=== PATIENT | female | born 1995 | race Caucasian/White ===

== ENCOUNTER 2024-06-03 00:20 | Inpatient (IN) | payer OTHER ==
[~2024-06-03] VITALS: Ht 160 cm; Wt 59.0 kg
[2024-06-03] MEDS ORDERED: HOME MED LIST COMPLETE! XX SCH (03:05)
[2024-06-03] MEDS: LORazepam 0.5 MG TAB PO STA (04:01)
[2024-06-03 17:50] VITALS: BP 108/75; TEMP 97.5; O2SAT 97
[2024-06-03] MEDS ORDERED: ACETAMINOPHEN 325 MG TAB PO PRN (20:40)
[2024-06-03] MEDS ORDERED: traZODone 50 MG TAB PO PRN (20:40)
[2024-06-03] MEDS ORDERED: MOM 30ML SUSPENSION UDC PO PRN (20:40)
[2024-06-03] MEDS ORDERED: MAALOX 30 ML SUSP *UDC PO PRN (20:40)
[2024-06-03] MEDS ORDERED: IBUPROFEN 400MG TAB PO PRN (20:40)
[2024-06-03] MEDS ORDERED: diphenhydrAMINE 25MG CAP PO PRN (20:40)
[2024-06-04 06:42] VITALS: BP 119/87; TEMP 98.5; O2SAT 97
[2024-06-04] MEDS: PARoxetine 10MG TABLET PO SCH (12:31)
[2024-06-04 17:03] VITALS: BP 129/70; TEMP 97.4; O2SAT 99
[2024-06-05 06:30] VITALS: BP 108/74; TEMP 98; O2SAT 98
[2024-06-05 15:42] VITALS: BP 109/66; TEMP 97.4; O2SAT 97
[2024-06-06 06:23] VITALS: BP 115/63; TEMP 97.6; O2SAT 99
[2024-06-06 15:29] VITALS: BP 121/57; TEMP 97; O2SAT 97
[2024-06-07 06:40] VITALS: BP 109/57; TEMP 97.7; O2SAT 98
[2024-06-07 16:07] VITALS: BP 122/77; TEMP 97.9; O2SAT 99
[2024-06-07] MEDS: FLUoxetine 20MG CAP PO SCH (16:45)
[2024-06-07] MEDS: RIVAROXABAN 20MG TAB (XARELTO) PO SCH (18:12)
[2024-06-08 06:47] VITALS: BP 114/65; TEMP 97.6; O2SAT 98
[2024-06-08] MEDS ORDERED: TRAZ-252 PO (11:40)
[2024-06-08] MEDS ORDERED: FLUO-365 PO (11:40)
[2024-06-08] MEDS ORDERED: XARE20TA PO (11:40)
== END 2024-06-08 14:02 | disposition home or self-care (01) | DRG 751 ==
LOC: M ED 00:20 → M ED INP 14:45 → M PSY 18:16
PROVIDERS: ADMIT Psychiatry & Neurology Psychiatry; ATTEND Psychiatry & Neurology Psychiatry
DX: F33.1 Major depressive disorder, recurrent, moderate (principal); Q79.60 Ehlers-Danlos syndrome, unspecified; R45.851 Suicidal ideations; F41.9 Anxiety disorder, unspecified; J45.909 Unspecified asthma, uncomplicated; I10 Essential (primary) hypertension; Z86.718 Personal history of other venous thrombosis and embolism; G89.29 Other chronic pain